=== PATIENT | female | born 2005 | race Caucasian/White ===

== ENCOUNTER 2024-10-11 14:36 | Emergency (ER) | payer OTHER, SELFPAY ==
[2024-10-11] VITALS (8 sets, daily range): BP systolic 112–148; BP diastolic 65–107; PULSE 85–88
[2024-10-11 15:19] LABS: % Basophils 1.1 % (0-2); % Eosinophils 2.8 % (0-6); % Immature Granulocytes 0.1 % (0-0.5); % Lymphocytes 28.4 % (20.5-51.1); % Monocytes 8.8 % (1.7-9.3); % Neutrophils 58.8 % (42.2-75.2); Absolute Basophils 0.1 10^3/uL (0-0.2); Absolute Eosinophils 0.2 10^3/uL (0-0.7); Absolute Lymphocytes 2.3 10^3/uL (1.2-3.4); Absolute Monocytes 0.7 10^3/uL (0.1-0.6); Absolute Neutrophils 4.8 10^3/uL (1.4-6.5); Hematocrit 39.9 % (37.0-47.0); Hemoglobin 14.4 g/dL (12.0-16.0); Mean Corp Hgb Conc. 36.1 g/dL (33.0-37.0); Mean Corpuscular Hgb 32.6 pg (27.0-31.0); Mean Corpuscular Volume 90.3 fL (81.0-99.0); Mean Platelet Volume 9.4 fL (7.4-10.4); Nucleated Red Blood Cells % 0 %; Platelet Count 285 10^3/uL (130-400); Red Blood Cell Count 4.42 10^6/uL (4.20-5.40); Red Cell Dist. Width 11.6 % (11.5-14.5); White Blood Cell Count 8.2 10^3/uL (4.8-10.8)
[2024-10-11 15:39] LABS: HCG, Serum Qualitative Screen Negative
[2024-10-11 15:44] LABS: ALT (SGPT) 22 U/L (0-35); AST (SGOT) 24 U/L (14-36); Albumin 4.9 g/dl (3.5-5.0); Alkaline Phosphatase 53 U/L (38-126); Blood Urea Nitrogen 12 mg/dl (7-17); Carbon Dioxide 27 mmol/L (22-30); Chloride 105 mmol/L (98-107); Glucose 103 mg/dl (70-99); Sodium 142 mmol/L (135-145); Total Bilirubin 0.8 mg/dl (0.2-1.3); Total Protein 7.5 g/dl (6.3-8.2); eGFR > 60.00
[2024-10-11 16:15] LABS: TSH Reflex To Free T4 4.14 uIU/ml (0.47-4.68)
--- NOTE | 2024-10-11 19:37 | ED.GENMED ---
History of Present Illness
General
Chief Complaint: Abdominal Symptoms
Source: patient
Exam Limitations: none
Time Seen by Provider: 10/11/24 18:02
Nursing documentation reviewed up to this point in time: agreed with
History of Present Illness
History of Present Illness:
Patient is a 19-year-old female with history of exercise-induced asthma who presents to the emergency department for evaluation of palpitations. 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
heart was racing. She also became very nauseous. She checked her Apple Watch what said that her heart rate was in the 140s. Symptoms persisted for a few minutes prior to resolving spontaneously. Patient denies any associated chest pain, shortness of
breath.
Patient came to the emergency department for evaluation as she feels as if she�s been having these �episodes �over the past few months. 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 However
� over the past few months they have continued to occur, despite finishing school. She said that occasionally she becomes a little lightheaded and nauseous w/ exercise.
She also notices that her periods have been irregular recently.
She has not had any syncopal events. Patient denies any recent travel or surgery.
Review of Systems
Review of Systems
Allergies reviewed?: Yes
All Other Systems: ROS reviewed and negative except as documented in HPI and ROS
Phy Exam
Physical Exam
Physical Exam:
Vitals: Hypertensive, otherwise stable vital signs. Afebrile
General: Patient is vey well appearing, no acute distress
Skin: Warm and dry, no rashes or lesions
Head: Normocephalic, atraumatic
Eyes: Sclera nonicteric.
Throat: Protecting airway
Neck: Normal ROM, no cervical spine tenderness, no meningismus. NO JVD
Cardiac: Regular rate and rhythm, no murmurs.
Pulm: Normal respiratory effort, no wheezes, rales, rhonchi heard on exam
.
Abdomen: No abdominal tenderness.
Extremities: No evidence of cyanosis or edema. Palpable and equal distal pulses in bilaterally upper and lower extremities. Negative marifer sign bilaterally.
Neuro: AAOx3. CN II-XII intact. No focal neurologic deficits.
Psychiatric: Normal affect.
Course
Orders/Labs/Results
Orders:
Orders
10/11/24 14:48
EKG [Electrocardiogram (*1)] Urgent
Reason for Study: Palpitations
EKG- Treatment ONCE
10/11/24 14:49
Test Result ONCE
10/11/24 15:06
Complete Blood Count/With Diff Urgent
Comprehensive Metabolic Panel Urgent
HCG, Serum Qualitative Screen Urgent
TSH Reflex To Free T4 Urgent
10/11/24 18:32
Orthostatic VS- Treatment ONCE
10/11/24 19:55
D-Dimer Stat
Abnormal Lab Results
10/11/24
15:06
MCH 32.6 H pg
(27.0-31.0)
Absolute Monos (auto) 0.7 H 10^3/uL
(0.1-0.6)
Glucose 103 H mg/dl
(70-99)
10/11/24 15:06
10/11/24 15:06
Vital Signs
Initial and Last Documented VS:
Initial Vital Signs
Temp Pulse Resp BP Pulse Ox
98.4 F 83 16 148/99 100
10/11/24 14:44 10/11/24 14:44 10/11/24 14:44 10/11/24 14:44 10/11/24 14:44
Last Documented Vital Signs
Temp Pulse Resp BP Pulse Ox
98.4 F 78 17 116/72 98
10/11/24 14:44 10/11/24 20:30 10/11/24 20:30 10/11/24 20:01 10/11/24 20:30
MDM/Problems Addressed
Differential Diagnosis Includes:
Not limited to: dehydration, orthostatic hypotensive, cardiac arrhythmia, hyperthyroid, PE, etc
MDM/Problems Addressed:
19-year-old female who presents the ED with complaints of intermittent palpitations and associated nausea for the past few weeks. No associated chest pain, shortness of breath, syncopal events, or focal neurologic symptoms. No history of
arrhythmias, structural heart disease, or significant medical conditions. Patient essentially asymptomatic by arrival to ED although reports elevated heart rate and palpitations associated with nausea while at work earlier today. This has occurred
a few times over the past few weeks. She is initially hypertensive on arrival although improved without intervention. Physical exam as above. Patient very well-appearing, no apparent distress. Heart regular rate and rhythm with no obvious
murmurs. Lungs are clear bilaterally. No evidence of DVT on exam. EKG obtained in triage shows normal sinus rhythm without any acute ischemic changes.
Workup in emergency department unremarkable including EKG, lab testing including TSH, test, and D-dimer negative. Patient has remained stable throughout ED stay without any evidence of hemodynamic instability. She is asymptomatic.
Palpitations and nausea likely related to benign causes. Abdomen benign�do not feel CT imaging indicated. No evidence of arrhythmia, PE, or other serious pathology on my current evaluation. Patient has remained stable and asymptomatic.
Ultimately feel patient medically stable for discharge home. Patient advised to follow-up closely with primary care and cardiology for Holter monitor. Very strict return precautions discussed. Patient and patient's father comfortable with plan.
Chronic conditions affecting care:
N/A
Acute Exacerbation and/or Progression of Chronic Illness:
N/A
*Pulse Oximetry
Patient hypoxic: no
*EKG
Interpreted by ED Provider?: Yes
EKG Intrepretation Date: 10/11/24
Interpretation: normal
Comparison EKG: no comparison EKG present
Heart Rate: 79
Rate: normal
Rhythm: sinus
[place]: normal axis
Interval: normal interval
QRS Pattern: normal QRS
Ischemia: no ischemia
*Assistant Manager [employer] Interpretation
Rate: normal
Interpretation: normal
Heart Rate: 86
Rhythm: sinus
*Critical Care Note
Total Time (30-74mins, 75-104mins- exclusive of procedures): Not Applicable
ED Attending Note
-
Portions of this chart may have been created with voice recognition software.� Occasional wrong word or��sound alike� substitutions may have occurred due to the inherent limitations of voice recognition software.
Discharge Plan
Departure
Patient Disposition: Home (Routine Discharge)
Date of Disposition: 10/11/24
Time of Disposition: 20:50
Patient with high blood pressure during this ER visit?: Yes
Condition: Good
Covid-19: Not Applicable
Discharge Problem:
Palpitations, Lightheadedness
Instructions: Near Fainting (DC), Palpitations - ED discharge instructions, BLOOD PRESSURE
Referrals:
Terence Brown MD [Family Provider] - Next open appointment
Rachel Flores, [Active] - Next open appointment
Activity Restrictions/Additional Instructions:
RETURN TO THE EMERGENCY DEPARTMENT WITH ANY SHORTNESS OF BREATH, CHEST PAIN, PERSISTENT DIZZINESS/LIGHTHEADEDNESS, INTRACTABLE NAUSEA, WORSENING IN CURRENT SYMPTOMS, OR ANY OTHER CONCERNS
- As discussed�your workup in the emergency department including labs showed no acute abnormalities. Your thyroid test was normal. You showed no evidence of a heart arrhythmia today while on the monitor in the emergency department.
- You should follow-up with primary care and cardiology for further evaluation/management. The contact information for cardiology's been provided for you above. Will likely need a Holter monitor for further evaluation of your heart rate/rhythm
- It is important to stay well-hydrated. Continue to take your medications as prescribed
Monitor your symptoms closely and return to the emergency department with any acute worsening/new symptoms or any other concerns
Interventions
Interventions:
*Risk Screen - Suicide Last Done: 10/11/24 14:44
*General Assessment Last Done: 10/11/24 14:44
*Neglect/Abuse Screening Last Done: 10/11/24 21:00
*ED- Fall Risk Assessment Last Done: 10/11/24 21:09
*ED COVID-19 Vaccine History Last Done: 10/11/24 14:44
*Nursing Disposition Last Done: 10/11/24 21:09
BW-Wmefpm-Imqskymiup Assessment Last Done: 10/11/24 20:00
Discharge Date and Time
Discharge Date/Time: 10/11/24 21:00
Print Language: J[place]
[2024-10-11 20:24] LABS: D-Dimer < 0.27 ug/mlFEU (0.00-0.50)
== END 2024-10-11 21:00 | disposition home or self-care (01) ==
LOC: EMR 14:36
PROVIDERS: Emergency Medicine; Physician Assistant; EMERGENCY PHYSICIAN Student in an Organized Health Care Education/Training Program; FAMILY PHYSICIAN Pediatrics
DX: R00.2 Palpitations (principal); R42 Dizziness and giddiness; J45.990 Exercise induced bronchospasm
CPT/HCPCS: 99284; 80053; 84443; 84703; 85025; 85379; 93005

== ENCOUNTER → 2025-04-30 10:44 | Outpatient (REF) | payer OTHER, SELFPAY | LOC: OHS 10:44 | PROVIDERS: ATTENDING PHYSICIAN Nurse Practitioner Family | DX: Z23 Encounter for immunization (principal) | CPT/HCPCS: 36415; 86480; 86706 ==